=== PATIENT | male | born 1940 | race Caucasian/White ===

== ENCOUNTER 2020-06-23 08:52 | Day surgery (SDC) | payer MEDICARE ==
[2020-06-22 12:46] LABS: BASOPHILS # (AUTO) 0.1 X10'3 (0-0.2); BASOPHILS % (AUTO) 0.7 % (0-1); EOSINOPHILS # (AUTO) 0.2 X10'3 (0-0.9); EOSINOPHILS % (AUTO) 2.5 % (0-6); HEMATOCRIT 46.8 % (42.0-52.0); HEMOGLOBIN 15.8 g/dl (14.0-17.9); LYMPHOCYTES # (AUTO) 1.8 X10'3 (1.1-4.8); LYMPHOCYTES % (AUTO) 19.4 % (21-51); MEAN CORPUSCULAR HEMOGLOBIN 29.9 PG (27.0-31.0); MEAN CORPUSCULAR HGB CONC 33.7 g/dL (33.0-36.5); MEAN CORPUSCULAR VOLUME 88.8 FL (78-98); MEAN PLATELET VOLUME 8.9 FL (7.4-10.4); MONOCYTES # (AUTO) 1.2 X10'3 (0-0.9); NEUTROPHILS # (AUTO) 5.9 X10'3 (1.8-7.7); NEUTROPHILS % (AUTO) 64.4 % (42-75); PLATELET COUNT 242 X10'3 (140-440); RED BLOOD COUNT 5.27 X10'6 (4.70-6.10); WHITE BLOOD COUNT 9.2 X10'3 (4.5-11.0)
[2020-06-22 12:56] LABS: ALBUMIN 3.6 G/DL (3.4-5.0); ANION GAP 9 (8-16); BLOOD UREA NITROGEN 20 MG/DL (7-18); CALCIUM 9.1 MG/DL (8.5-10.1); CHLORIDE 106 MMOL/L (99-107); CREATININE 1.11 MG/DL (0.60-1.10); GLUCOSE 103 MG/DL (70-104); POTASSIUM 4.4 MMOL/L (3.5-5.1); SODIUM 139 MMOL/L (135-145); TOTAL CARBON DIOXIDE 23.9 MMOL/L (24-32); eGFR 64 ML/MIN
[2020-06-22 12:59] LABS: PARTIAL THROMBOPLASTIN TIME 31 SECONDS (22-32)
[~2020-06-23] VITALS: Ht 177.8 cm; Wt 92.6 kg
[2020-06-23] VITALS (24 sets, daily range): BP systolic 120–170; BP diastolic 44–97
[2020-06-23] MEDS ORDERED: LORazepam 0.5 MG tablet PO PRN (09:10)
[2020-06-23] MEDS ORDERED: sodium bicarbonate (8.4%) inj. 75 ML in dextrose 5% water 500ml 500 ML IV ONE (09:10)
[2020-06-23] MEDS ORDERED: acetylcysteine 200 MG/ml 4ml vial PO PRN (09:10)
[2020-06-23] MEDS ORDERED: diphenhydrAMINE 25mg capsule PO PRN (09:10)
[2020-06-23] MEDS ORDERED: LIDOcaine/PRILOcaine 5gm cream TP ONE (09:15)
[2020-06-23] MEDS ORDERED: LIDOcaine 1% (10mg/ml)w/preservative injection 20ml MDV ONE (10:42)
[2020-06-23] MEDS ORDERED: verapamil 2.5 mg/ml inj IV ONE (10:42)
[2020-06-23] MEDS ORDERED: fentaNYL/PF 50MCG/1 ML 2ML syringe ONE (10:42)
[2020-06-23] MEDS ORDERED: heparin 1,000unit/ml 10ml vial 10 ML ONE (10:42)
[2020-06-23] MEDS ORDERED: nitroGLYCERIN-Tridil 50MG/D5W 250 ML IV ONE (10:42)
[2020-06-23] MEDS ORDERED: iohexol 350 MG/ML 50ML vial IV ONE ×2 (10:42→11:52)
[2020-06-23] MEDS ORDERED: midazolam 1 mg/ML 2ml injection ONE (10:42)
[2020-06-23] MEDS ORDERED: iohexol 350MG/ML 100ml bottle IV ONE (10:42)
[2020-06-23] MEDS ORDERED: APIX5TAB3 PO (10:58)
[2020-06-23] MEDS ORDERED: CARV3.122 PO (10:58)
[2020-06-23] MEDS ORDERED: SPIR25TA5 PO (10:58)
[2020-06-23] MEDS ORDERED: LOSA100T57 PO (10:58)
[2020-06-23] MEDS ORDERED: DOBUTamine-DoBUTrex 500mg/D5W 250 ML IV SCH (13:05)
== END 2020-06-23 17:30 | disposition home or self-care (01) ==
LOC: SSTAY O 08:52
PROVIDERS: ATTEND Internal Medicine Cardiovascular Disease
DX: R06.02 Shortness of breath (principal); R53.83 Other fatigue; I25.10 Atherosclerotic heart disease of native coronary artery without angina pectoris; I25.82 Chronic total occlusion of coronary artery; I48.0 Paroxysmal atrial fibrillation; I11.0 Hypertensive heart disease with heart failure; I50.22 Chronic systolic (congestive) heart failure; E78.5 Hyperlipidemia, unspecified; I25.5 Ischemic cardiomyopathy; I25.2 Old myocardial infarction; I08.0 Rheumatic disorders of both mitral and aortic valves; Z88.0 Allergy status to penicillin; Z88.2 Allergy status to sulfonamides; Z79.01 Long term (current) use of anticoagulants; Z79.899 Other long term (current) drug therapy; Z98.890 Other specified postprocedural states; Z72.89 Other problems related to lifestyle; Z85.46 Personal history of malignant neoplasm of prostate; Z90.5 Acquired absence of kidney; Z82.49 Family history of ischemic heart disease and other diseases of the circulatory system
CPT/HCPCS: 36415; 80048; 85025; 85610; 85730; 93005; 93350; 93458; 93567; 99152; 99153; C1769; C1894; J1250; J1644; J2001; J2250; J3010; Q0163; Q9967; A4620; A6258; C1751; J3490

== ENCOUNTER 2023-04-25 10:05 | Day surgery (SDC) | payer MEDICARE ==
[2023-04-24 14:58] LABS: BASOPHILS # (AUTO) 0.1 X10'3 (0-0.2); BASOPHILS % (AUTO) 0.4 % (0-1); EOSINOPHILS # (AUTO) 0.3 X10'3 (0-0.9); HEMATOCRIT 48.8 % (42.0-52.0); HEMOGLOBIN 16.5 g/dl (14.0-17.9); LYMPHOCYTES # (AUTO) 1.2 X10'3 (1.1-4.8); LYMPHOCYTES % (AUTO) 8.9 % (21-51); MEAN CORPUSCULAR HEMOGLOBIN 31.3 PG (27.0-31.0); MEAN CORPUSCULAR HGB CONC 33.8 g/dL (33.0-36.5); MEAN CORPUSCULAR VOLUME 92.4 FL (78-98); MEAN PLATELET VOLUME 9.5 FL (7.4-10.4); MONOCYTES # (AUTO) 1.1 X10'3 (0-0.9); MONOCYTES % (AUTO) 8.5 % (2-12); NEUTROPHILS # (AUTO) 10.4 X10'3 (1.8-7.7); NEUTROPHILS % (AUTO) 80.2 % (42-75); PLATELET COUNT 198 X10'3 (140-440); RED BLOOD COUNT 5.28 X10'6 (4.70-6.10); RED CELL DISTRIBUTION WIDTH 13.3 % (11.5-14.5)
[2023-04-24 15:42] LABS: ALBUMIN 3.7 G/DL (3.4-5.0); ANION GAP 14 (8-16); BLOOD UREA NITROGEN 15 MG/DL (7-18); BUN/CREATININE RATIO 12.6 (10.0-20.0); CHLORIDE 103 MMOL/L (99-107); CREATININE 1.19 MG/DL (0.60-1.10); GLUCOSE 104 MG/DL (70-104); POTASSIUM 4.5 MMOL/L (3.5-5.1); SODIUM 138 MMOL/L (135-145); TOTAL CARBON DIOXIDE 21.3 MMOL/L (24-32); eGFR 59 ML/MIN
[2023-04-24 16:55] LABS: APTT 29 SECONDS (22-32); INR 1.1 INR; PROTHROMBIN TIME 11.4 SECONDS (9.0-12.0)
[2023-04-25] VITALS (10 sets, daily range): BP systolic 116–158; BP diastolic 49–74; PULSE 61–71; RESP 16; TEMP 97.8; O2SAT 92–93
[~2023-04-25] VITALS: Ht 177.8 cm; Wt 97.6 kg
[~2023-04-25 10:05] MED LIST: AMIO200T67 PO; APIX5TAB3 PO; ASPI-1071 PO; CARV3.122 PO; HYDR-3972 PO; LOSA50TA64 PO; ROSU20TA2 PO; SPIR25TA5 PO
[2023-04-25] MEDS ORDERED: ASPI-1265 PO (11:14)
[2023-04-25] MEDS ORDERED: SACU1TAB7 PO (11:14)
[2023-04-25] MEDS ORDERED: clindamycin-Cleocin 900mg/D5W 50 ML IV ONE (11:40)
[2023-04-25] MEDS ORDERED: fentaNYL/PF 50MCG/1 ML 2ML syringe ONE ×2 (12:03→13:34)
[2023-04-25] MEDS ORDERED: midazolam 1 mg/ML 2ml injection ONE ×2 (12:03→13:34)
[2023-04-25] MEDS ORDERED: LIDOcaine 1% w/EPI 1:100,000 inj. MDV 50 ML VIAL ONE (12:03)
[2023-04-25] MEDS ORDERED: ceFAZolin 1000mg inj ONE (12:03)
[2023-04-25] MEDS ORDERED: iohexol 350MG/ML 100ml bottle IV ONE ×2 (12:55→14:29)
[2023-04-25] MEDS ORDERED: clindamycin 600mg/D5W 50ml 50 ML IV ONE (12:58)
[2023-04-25] MEDS ORDERED: iohexol 350 MG/ML 50ML vial IV ONE (12:58)
[2023-04-25] MEDS: vancomycin/NS 1 GM ADD-VANTAGE 250 ML X 1 DOSE IV ONE (17:35)
[2023-04-25] MEDS: HYDROcodone/acetaminophen 10/325mg tab PO ONE (18:19)
== END 2023-04-25 19:45 | disposition home or self-care (01) ==
LOC: SSTAY O 10:05
PROVIDERS: ATTEND Internal Medicine Cardiovascular Disease
DX: I42.0 Dilated cardiomyopathy (principal); I44.7 Left bundle-branch block, unspecified; I11.0 Hypertensive heart disease with heart failure; I50.22 Chronic systolic (congestive) heart failure; I42.8 Other cardiomyopathies; E78.5 Hyperlipidemia, unspecified; I25.10 Atherosclerotic heart disease of native coronary artery without angina pectoris; Z95.1 Presence of aortocoronary bypass graft
CPT/HCPCS: 33225; 33249; 36415; 71046; 80048; 85025; 85610; 85730; 93005; 99152; 99153; C1769; C1882; C1895; C1898; C1900; J0690; J2250; J3010; J3370; J3490; J7030; Q9967; A4565; A6449